=== PATIENT | female | born 1950 | race African-American/Black ===

== ENCOUNTER 2016-11-04 22:40 | Emergency (ER) | payer OTHER ==
[~2016-11-04] VITALS: Ht 160 cm; Wt 88.5 kg
[~2016-11-04 22:40] MED LIST: CALCIUM 500 +1 EAC5 PO; NORCO 5-325 TA1 EACH PO; PRILOSEC 20 MG20 MG PO; VITAMIN D1000 UNI1 PO
[2016-11-04] MEDS ORDERED: PROTONIX40 M1 PO (23:00)
[2016-11-05 00:40] VITALS: BP 110/84
== END 2016-11-05 00:41 | disposition home or self-care (01) ==
LOC: ER 22:40
DX: S06.0X9A Concussion with loss of consciousness of unspecified duration, initial encounter (principal); S09.90XA Unspecified injury of head, initial encounter; Z90.710 Acquired absence of both cervix and uterus; W22.8XXA Striking against or struck by other objects, initial encounter; Y93.89 Activity, other specified; Y92.89 Other specified places as the place of occurrence of the external cause; Y99.8 Other external cause status